=== PATIENT | male | born 1985 | race Caucasian/White ===

== ENCOUNTER 2017-08-05 23:21 | Emergency (ER) | payer BC ==
--- NOTE | 2017-08-05 23:47 | ERPHSYRPT ---
- History of Present Illness Time Seen by Provider: 08/05/17 23:40 Historian: patient Exam Limitations: no limitations Patient Subjective Stated Complaint: chest pain began in last 1-2 hrs; was laying in bed when pain began, dizzy spells earlier in the day Triage Nursing Assessment: chest pain x 2 hrs, lungs CTA bilat Physician History: The patient is a 31-year-old male who complains of intermittent chest pain that began last March. Tonight he was in bed resting and he had some chest discomfort and tightness that began about 2 hours ago. He had some radiation at times down his left arm. He was not short of breath nor was he nauseated or sweating. He takes no medicines. His past medical history is negative, Except for arthroscopic knee surgery. His family history is negative.2 Timing/Duration: hour(s) (2) Activities at Onset: rest Quality: other (discomforts) Location: central Chest Pain Radiation: arm (left) Severity of Pain-Max: mild Severity of Pain-Current: mild Modifying Factors: Improves With: nothing Associated Symptoms: denies symptoms Prior Chest Pain/Cardiac Workup: no prior cardiac workup Nitro Today/Relief: no nitro taken today Aspirin Treatment Today: 81 mg x 4, provided by ED Allergies/Adverse Reactions: No Known Drug Allergies Allergy (Unverified 08/05/17 23:32) Hx Influenza Vaccination/Date Given: No Hx Pneumococcal Vaccination/Date Given: No Immunizations Up to Date: Yes - Review of Systems Constitutional: No Fever, No Chills Eyes: No Symptoms Ears, Nose, & Throat: No Symptoms Respiratory: No Cough, No Dyspnea Cardiac: Chest Pain Abdominal/Gastrointestinal: No Symptoms Genitourinary Symptoms: No Symptoms, No Dysuria Musculoskeletal: No Symptoms, No Back Pain, No Neck Pain Skin: No Symptoms, No Rash Neurological: No Symptoms Psychological: No Symptoms Endocrine: No Symptoms Hematologic/Lymphatic: No Symptoms Immunological/Allergic: No Symptoms All Other Systems: Reviewed and Negative - Past Medical History Pertinent Past Medical History: Yes Neurological History: No Pertinent History ENT History: No Pertinent History Cardiac History: Other Respiratory History: No Pertinent History Endocrine Medical History: No Pertinent History Musculoskeletal History: No Pertinent History GI Medical History: No Pertinent History History: No Pertinent History Psycho-Social History: No Pertinent History Male Reproductive Disorders: No Pertinent History Other Medical History: heart murmur - Past Surgical History Past Surgical History: Yes Neuro Surgical History: No Pertinent History Cardiac: No Pertinent History Respiratory: No Pertinent History Gastrointestinal: No Pertinent History Genitourinary: No Pertinent History Musculoskeletal: Other Male Surgical History: No Pertinent History Other Surgical History: left knee orthoscopic sx - Social History Smoking Status: Current every day smoker Drug Use: none - Nursing Vital Signs Nursing Vital Signs: Initial Vital Signs Temperature 98.1 F 08/05/17 23:22 Pulse Rate 82 08/05/17 23:22 Respiratory Rate 14 08/05/17 23:22 Blood Pressure 145/82 08/05/17 23:22 O2 Sat by Pulse Oximetry 96 08/05/17 23:22 Pain Scale Pain Intensity 3 - Physical Exam General Appearance: no apparent distress, alert Eye Exam: PERRL/EOMI, eyes nml inspection Ears, Nose, Throat Exam: normal ENT inspection, moist mucous membranes Neck Exam: normal inspection, non-tender, supple, full range of motion Respiratory Exam: normal breath sounds Cardiovascular Exam: regular rate/rhythm, normal heart sounds Gastrointestinal/Abdomen Exam: soft, No tenderness, No mass Rectal Exam: not done Back Exam: normal inspection, No CVA tenderness, No vertebral tenderness Extremity Exam: normal inspection, normal range of motion Neurologic Exam: alert, oriented x 3, cooperative, normal mood/affect, sensation nml, No motor deficits Skin Exam: normal color, warm, dry SpO2 Interpretation: normal SpO2: 96 Oxygen Delivery: Room Air - Course Nursing assessment & vital signs reviewed: Yes EKG Interpreted by Me: RATE, Sinus Rhythm, NORMAL AXIS, NORMAL INTERVALS, NORMAL QRS, NORMAL ST-T - Radiology Exams Chest X-ray Interpretation: Interpreted by me, Negative Ordered Tests: Active Orders 24 hr Category Date Time Status EKG-ER Only STAT Care 08/05/17 23:50 Active IV Insertion STAT Care 08/05/17 23:50 Active CHEST 2 VIEWS (PA AND LAT) Stat Exams 08/05/17 23:51 Taken CBC W DIFF Stat Lab 08/05/17 23:57 Completed CMP Stat Lab 08/05/17 23:57 Completed LIPASE Stat Lab 08/05/17 23:57 Completed TROPONIN Q3H Lab 08/05/17 23:57 Completed TROPONIN Q3H Lab 08/06/17 02:51 Ordered TROPONIN Q3H Lab 08/06/17 05:51 Ordered TROPONIN Q3H Lab 08/06/17 08:51 Ordered TROPONIN Q3H Lab 08/06/17 11:51 Ordered UA W/RFX UR CULTURE Stat Lab 08/05/17 00:03 Completed Urine Triage Profile Stat Lab 08/05/17 00:03 Completed Medication Summary Discontinued Medications Generic Name Dose Route Start Last Admin Trade Name Freq PRN Reason Stop Dose Admin Al Hydrox/Mg Hydrox/Simethicone Confirm 08/05/17 23:57 Maalox Es 30 Ml Unit Dose Administered 08/05/17 23:58 Dose 30 ml .ROUTE .STK-MED ONE Aspirin 324 mg 08/05/17 23:52 08/06/17 00:01 Baby Aspirin 81 Mg Chew PO 08/05/17 23:53 324 mg STAT ONE Administration Aspirin Confirm 08/05/17 23:56 Baby Aspirin 81 Mg Chew Administered 08/05/17 23:57 Dose 324 mg .ROUTE .STK-MED ONE Lidocaine HCl Confirm 08/05/17 23:57 Xylocaine Hcl Viscous * Administered 08/05/17 23:58 Dose 15 ml .ROUTE .STK-MED ONE Magnesium Hydroxide 45 ml 08/05/17 23:50 08/06/17 00:02 Gi Cocktail 45 Ml (Maalox/Lidocaine) PO 08/05/17 23:51 45 ml STAT ONE Administration Nitroglycerin 0.4 mg 08/05/17 23:52 08/06/17 00:02 Nitrostat 0.4 Mg (Ed) SL 08/05/17 23:53 0.4 mg STAT ONE Administration Nitroglycerin Confirm 08/05/17 23:57 Nitrostat 0.4 Mg (Ed) Administered 08/05/17 23:58 Dose 0.4 mg SL .STK-MED ONE Potassium Chloride 20 meq 08/06/17 00:38 Klor Con 10 Meq PO 08/06/17 00:39 STAT ONE Lab/Rad Data: Laboratory Result Diagrams 08/05/17 23:57 08/05/17 23:57 Laboratory Results 08/05/17 08/05/17 08/05/17 Range/Units 23:57 23:57 23:57 WBC 7.6 (4.0-10.5) K/mm3 RBC 4.97 (4.1-5.6) M/mm3 Hgb 15.2 (12.5-18.0) gm/dl Hct 42.6 (42-50) % MCV 85.7 (78-100) fl MCH 30.6 (26-32) pg MCHC 35.7 (32-36) g/dl RDW 13.3 (11.5-14.0) % Plt Count 279 (150-450) K/mm3 MPV 10.6 H (6-9.5) fl Gran % 42.2 (36.0-66.0) % Lymphocytes % 44.5 H (24.0-44.0) % Monocytes % 9.5 (0.0-12.0) % Eosinophils % 3.0 (0.00-5.0) % Basophils % 0.8 (0.0-0.4) % Basophils # 0.06 (0-0.4) Sodium 139 (136-145) mEq/L Potassium 3.3 L (3.5-5.1) mEq/L Chloride 103 (98-107) mEq/L Carbon Dioxide 24.7 (21-32) mEq/L Anion Gap 14.2 (5-15) MEQ/L BUN 15 (9-20) mg/dL Creatinine 1.18 (0.55-1.30) mg/dl Estimated GFR > 60 ML/MIN Glucose 93 (70-110) MG/DL Calcium 8.6 (8.5-10.1) mg/dL Total Bilirubin 0.50 (0.2-1.0) mg/dL AST 27 (15-37) U/L ALT 48 (12-78) U/L Alkaline Phosphatase 60 (46-116) U/L Troponin I < 0.017 (0.000-0.056) ng/ml Serum Total Protein 7.2 (6.4-8.2) gm/dL Albumin 4.1 (3.4-5.0) g/dL Lipase 123 (73-393) U/L Ur Collection Type Urine Color (YELLOW) Urine Appearance (CLEAR) Urine pH (5-6) Ur Specific Slick (1.005-1.025) Urine Protein (Negative) Urine Ketones (NEGATIVE) Urine Blood (0-5) Juan Manuel/ul Urine Nitrite (NEGATIVE) Urine Bilirubin (NEGATIVE) Urine Urobilinogen (0-1) mg/dL Ur Leukocyte Esterase (NEGATIVE) Urine Culture Reflexed (NO) Urine Glucose (NEGATIVE) mg/dL Urine Opiates Level (NEGATIVE) Ur Methadone (NEGATIVE) Urine Barbiturates (NEGATIVE) Ur Phencyclidine (PCP) (NEGATIVE) Urine Amphetamine (NEGATIVE) U Benzodiazepine Level (NEGATIVE) Urine Cocaine (NEGATIVE) Urine Marijuana (THC) (NEGATIVE) Specimen Received 08/05/17 08/05/17 Range/Units 00:03 00:03 WBC (4.0-10.5) K/mm3 RBC (4.1-5.6) M/mm3 Hgb (12.5-18.0) gm/dl Hct (42-50) % MCV (78-100) fl MCH (26-32) pg MCHC (32-36) g/dl RDW (11.5-14.0) % Plt Count (150-450) K/mm3 MPV (6-9.5) fl Gran % (36.0-66.0) % Lymphocytes % (24.0-44.0) % Monocytes % (0.0-12.0) % Eosinophils % (0.00-5.0) % Basophils % (0.0-0.4) % Basophils # (0-0.4) Sodium (136-145) mEq/L Potassium (3.5-5.1) mEq/L Chloride (98-107) mEq/L Carbon Dioxide (21-32) mEq/L Anion Gap (5-15) MEQ/L BUN (9-20) mg/dL Creatinine (0.55-1.30) mg/dl Estimated GFR ML/MIN Glucose (70-110) MG/DL Calcium (8.5-10.1) mg/dL Total Bilirubin (0.2-1.0) mg/dL AST (15-37) U/L ALT (12-78) U/L Alkaline Phosphatase (46-116) U/L Troponin I (0.000-0.056) ng/ml Serum Total Protein (6.4-8.2) gm/dL Albumin (3.4-5.0) g/dL Lipase (73-393) U/L Ur Collection Type VOID Urine Color YELLOW (YELLOW) Urine Appearance CLEAR (CLEAR) Urine pH 5.0 (5-6) Ur Specific Slick 1.020 (1.005-1.025) Urine Protein NEGATIVE (Negative) Urine Ketones MODERATE (NEGATIVE) Urine Blood NEGATIVE (0-5) Juan Manuel/ul Urine Nitrite NEGATIVE (NEGATIVE) Urine Bilirubin NEGATIVE (NEGATIVE) Urine Urobilinogen NORMAL (0-1) mg/dL Ur Leukocyte Esterase NEGATIVE (NEGATIVE) Urine Culture Reflexed NO (NO) Urine Glucose NEGATIVE (NEGATIVE) mg/dL Urine Opiates Level NEG. (NEGATIVE) Ur Methadone NEG. (NEGATIVE) Urine Barbiturates NEG. (NEGATIVE) Ur Phencyclidine (PCP) NEG. (NEGATIVE) Urine Amphetamine NEG. (NEGATIVE) U Benzodiazepine Level NEG. (NEGATIVE) Urine Cocaine NEG. (NEGATIVE) Urine Marijuana (THC) NEG. (NEGATIVE) Specimen Received 08/06/17 0005 - Progress Progress: improved Air Movement: good Blood Culture(s) Obtained: No Antibiotics given: No Counseled pt/family regarding: lab results, diagnosis, need for follow-up, rad results - Departure Time of Disposition: 00:40 Departure Disposition: Home Clinical Impression: Hypokalemia, Chest pain Condition: Stable Critical Care Time: No Additional Instructions: You have noncardiac chest pain. You were given aspirin 324 mg, nitroglycerin 0.4 mg, and a GI cocktail orally in the ER. You're also given potassium 20 mEq orally for mild hypo-kalemia. Follow-up this week with your primary care doctor.
[2017-08-05] MEDS ORDERED: GI COCKTAIL 45 ML (Maalox/Lidocaine) PO ONE (23:50)
[2017-08-05] MEDS ORDERED: BABY ASPIRIN 81 MG CHEW PO ONE (23:52)
[2017-08-05] MEDS ORDERED: Nitrostat 0.4 MG (ED) SL ONE ×2 (23:52→23:57)
[2017-08-05] MEDS ORDERED: BABY ASPIRIN 81 MG CHEW ONE (23:56)
[2017-08-05] MEDS ORDERED: MAALOX ES 30 ML UNIT DOSE ONE (23:57)
[2017-08-05] MEDS ORDERED: XYLOCAINE HCl Viscous ONE (23:57)
[2017-08-05 23:59] LABS: BASOPHIL % 0.8 % (0.0-0.4); Granulocytes % 42.2 % (36.0-66.0); Lymphocytes % 44.5 % (24.0-44.0); Mean Cell Volume 85.7 fl (78-100); Mean Corpuscular Hemoglobin 30.6 pg (26-32); Mean Platelet Volume 10.6 fl (6-9.5); Monocytes % 9.5 % (0.0-12.0); Platelet Count 279 K/mm3 (150-450); Red Blood Count 4.97 M/mm3 (4.1-5.6); Red Cell Distribution Width 13.3 % (11.5-14.0); White Blood Count 7.6 K/mm3 (4.0-10.5)
[2017-08-06 00:10] LABS: Collection Type VOID; Glucose NEGATIVE (NEGATIVE); Leukocyte Esterase NEGATIVE (NEGATIVE)
[2017-08-06 00:11] LABS: ADD URINE CULTURE? NO (NO); Bilirubin NEGATIVE (NEGATIVE); Blood NEGATIVE Ery/ul (0-5); COMPLETE URINE MICROSCOPIC? NO
[2017-08-06 00:22] LABS: ALBUMIN 4.1 g/dL (3.4-5.0); ALKALINE PHOSPHATASE 60 U/L (46-116); ANION GAP 14.2 MEQ/L (5-15); BLOOD UREA NITROGEN 15 mg/dL (9-20); CHLORIDE 103 mEq/L (98-107); Carbon Dioxide 24.7 mEq/L (21-32); Glucose 93 MG/DL (70-110); LIPASE 123 U/L (73-393); Potassium 3.3 mEq/L (3.5-5.1); SGOT/AST 27 U/L (15-37); SGPT/ALT 48 U/L (12-78); SODIUM 139 mEq/L (136-145); Total Protein 7.2 gm/dL (6.4-8.2)
[2017-08-06] MEDS ORDERED: Klor Con 10 MEQ PO ONE ×2 (00:38→00:41)
[2017-08-06 00:55] VITALS: BP 122/86; PULSE 80; O2SAT 98
--- NOTE | 2017-08-06 09:02 | XRAY ---
Indication: Chest pain. Comparison: None PA/lateral chest hyperinflated and clear with incidental azygos lobe. Heart is not enlarged. Bony thorax intact. Impression: Nonacute hyperinflated chest.
== END 2017-08-06 00:56 | disposition home or self-care (01) ==
LOC: ED 23:21
DX: E87.6 Hypokalemia (principal); R07.89 Other chest pain
CPT/HCPCS: 36000; 36415; 71020; 80053; 80307; 81002; 83690; 84484; 85025; 93005; 99284; A9270-GY